=== PATIENT | female | born 1945 | race Caucasian/White ===

== ENCOUNTER 2017-02-09 03:18 | Emergency (ER) | payer MEDICARE, BC ==
--- NOTE | ~2017-02-09 | CT4 ---
[facility] A Service of [facility] RADIOLOGY TEXT RESULTS PATIENT: HAMLET GUTIERREZ LOCATION: [facility] : 45 UNIT #: [id number] AGE: [address]: Derek Xie MD SEX: F ORDER DR: [id number] [facility] [address] [place], [place] [address] [id number] E MR#: [id number] [facility] #: [id number] NAME: HAMLET GUTIERREZ : 1945 SEX: F STUDY DATE/TIME: 02/09/2017 5:01 UNIT: [facility] ROOM: STUDY DESCRIPTION: CT Abd and Pelv Wo Cont Attending Physician: Derek Xie M.D. Ordering Physician: Trevor Mann M.D. Primary Care Physician: Jurgen Rendon M.D. MEDICAL IMAGING REPORT This report is preliminary unless electronic signature is present EXAM CT abdomen and pelvis without contrast. HISTORY Left flank pain today. TECHNIQUE CT abdomen and pelvis was performed without contrast. This CT exam was performed with one or more of the following radiation dose reduction techniques: automatic exposure control, adjustment of mA and/or kV according to patient size, and iterative reconstruction. FINDINGS CT abdomen: There is a 4 mm obstructing stone in the proximal left ureter 3.5 cm distal to the ureteropelvic junction causing [id number] left hydronephrosis. Small nonobstructing stones in the lower pole left kidney measure up to 3 mm. No right renal calculi or right hydronephrosis. Very small hiatal hernia. Peripherally calcified splenic artery aneurysm measures 1.8 cm. The liver, gallbladder, pancreas, and adrenal glands are normal. Multiple incidental small calcified splenic granulomas. Normal caliber abdominal aorta. No bowel dilatation. CT pelvis: Normal appendix. Hysterectomy. Urinary bladder is normal. IMPRESSION 1. There is a 4 mm obstructing stone in the proximal left ureter, 3.5 cm beyond the ureteropelvic junction, causing [id number] left hydronephrosis. 2. Small nonobstructing stones in the lower pole left kidney. 3. 1.8 cm splenic artery aneurysm is stable compared to CT 10/20/2010. [facility] A Service of [facility] RADIOLOGY TEXT RESULTS PATIENT: HAMLET GUTIERREZ LOCATION: [facility] : 45 UNIT #: [id number] AGE: [address]: Derek Xie MD SEX: F ORDER DR: Dictated by... Luis Alfredo Redd M.D. THIS IS AN ELECTRONICALLY VERIFIED REPORT Luis Alfredo Redd M.D. at 02/09/2017 10:31 PM DFUrszula/janes TD: 02/09/2017 12:30 JOB #: [id number] MEDICAL IMAGING REPORT Page 1 of 1 COPY
[~2017-02-09 03:18] MED LIST: ANTIVERT PO; ASPIRIN81 M1 PO; CENTRUM SILVER PO; CITRACAL + D CA1 TA1; CITRACAL + D M1 EACH PO; FISH OIL 1,01 CAP.EC PO; FLAX SEED OIL1000 M1 PO; FLOMAX PO; GLUCOSAMINE & C1 CAP PO; HCTZ PO; METOPROLOL SUCC25 MG PO; SYNTHROID75 MCG PO; ZOCOR20 MG PO
[2017-02-09 04:50] LABS: BASOPHIL# 0.2 X10e3 (0-0.3); EOSINOPHIL# 0.1 X10e3 (0-0.7); EOSINOPHIL% 1.1 % (0.0-7.0); HEMATOCRIT 39.5 % (35.0-45.0); LYMPHOCYTE% 17.5 % (17.0-45.0); MEAN CELL VOLUME 82.5 FL (83-96); MEAN CORPUSCULAR HEMOGLOBIN 27.1 PG (28-34); MEAN CORPUSCULAR HGB CONC 32.9 g/dL (30-36); MEAN PLATELET VOLUME 7.7 FL (6.5-11.5); MONOCYTE# 0.5 X10e3 (0-1.0); MONOCYTE% 8.1 % (3.0-12.0); NEUTROPHIL# 4.1 X10e3 (1.5-7.1); NEUTROPHIL% 69.3 % (40-75); PLATELET COUNT 201 X10e3 (140-420); RED BLOOD COUNT 4.79 X10e (3.90-5.30); RED CELL DISTRIBUTION WIDTH 13.2 % (11.0-15.5)
[2017-02-09 04:52] LABS: DIFF IND NO
[2017-02-09 05:08] LABS: ALBUMIN SERUM 4.3 g/dL (3.5-5.0); BILIRUBIN,TOTAL 1.3 mg/dL (0.2-2.0); BUN/CREATININE RATIO 17.5; CALCIUM SERUM 9.5 mg/dL (8.4-10.2); CREATININE SERUM 0.8 mg/dL (0.6-1.4); GLOM FILT RATE Estimated 74.2 mL/min (>60); POTASSIUM 3.9 mmol/L (3.5-5.1); PROTEIN TOTAL SERUM 7.5 g/dL (6.0-8.3)
[2017-02-09 06:32] LABS: URINE SOURCE CLEAN CATCH
[2017-02-09 06:44] LABS: URINE APPEARANCE CLEAR; URINE BILIRUBIN NEG (NEG); URINE BLOOD 3+ (NEG); URINE COLOR YELLOW; URINE GLUCOSE NEG (NEG); URINE KETONE NEG (NEG); URINE LEUKOCYTE ESTERASE 2+ (NEG); URINE NITRATE NEG (NEG); URINE PROTEIN NEG (NEG); URINE SPECIFIC GRAVITY 1.014 (1.003-1.035); URINE UROBILINOGEN 0.2 MG/DL (NEG)
[2017-02-09 06:47] LABS: CULTURE INDICATED? YES; URBCS1 AUWI 200-300 /[HPF] (0-2); URINE BACTERIA AUWI NEG (NEGATIVE); URINE SQUAMOUS EPITHELIAL CELL NONE SEEN /[HPF]
== END 2017-02-09 10:07 | disposition home or self-care (01) ==
LOC: CED 03:18
PROVIDERS: Emergency Medicine
DX: N13.2 Hydronephrosis with renal and ureteral calculous obstruction (principal)
CPT/HCPCS: 36415; 74176; 80053; 81003; 85025; 87086; 96374; 96375; 96376; 99284; J0696; J1170; J1885; J2270; J2405; J2765